=== PATIENT | male | born 1945 | race Caucasian/White ===

== ENCOUNTER 2017-03-08 07:17 | Day surgery (SDC) | payer OTHER, BC ==
[2017-03-07 13:55] VITALS: BMI 37.5
[2017-03-08] MEDS ORDERED: LIDOCAINE HCL/PF 2% SDV 5ML VIAL ONE (07:39)
[2017-03-08] MEDS ORDERED: PROPOFOL 20 ML ONE ×2 (07:39)
[2017-03-08 09:15] VITALS: TEMP 97.8
[2017-03-08 10:06] VITALS: BP 156/71; PULSE 83
--- NOTE | 2017-03-09 11:09 | PATH ---
Surgical Pathology Report Patient Name: GISELL HAYWARD [facility]. Rec. #: [id number] /Age/Gender: 1945 (Age: 71) / M Account: [id number] Location: [facility]-ENDOSCOPY Taken: 03/08/2017 Received: 03/08/2017 Reported: 03/09/2017 Physicians: Ginny Rodriguez M.D. Specimen(s) Received BX RECTAL ANASTOMOSIS Clinical History History of malignant neoplasm Rectal anastomosis, diverticulosis Final Diagnosis COLON, RECTAL ANASTOMOSIS, BIOPSY: COLONIC MUCOSA WITH MILD HYPERPLASTIC CHANGES. NO CARCINOMA OR ADENOMATOUS CHANGES IDENTIFIED. Electronically Signed Kunal Meneses M.D. Gross Description Received in formalin, labeled "biopsy rectal anastomosis" are 3 spear, irregular portions of soft tissue ranging from 0.3-0.5 cm. in greatest dimension. The specimens are submitted in toto in one cassette. /03/08/201703/08/2017
== END 2017-03-08 10:20 | disposition home or self-care (01) ==
LOC: JASU-ENDO 07:17
PROVIDERS: ATTEND Internal Medicine Gastroenterology
PROC: 0DBP8ZX Excision of Rectum, Via Natural or Artificial Opening Endoscopic, Diagnostic (ICD-10-PCS; principal; 2017-03-08 08:00)
DX: Z12.11 Encounter for screening for malignant neoplasm of colon (principal); Z85.048 Personal history of other malignant neoplasm of rectum, rectosigmoid junction, and anus; Z86.010 Personal history of colon polyps; K57.30 Diverticulosis of large intestine without perforation or abscess without bleeding; K64.8 Other hemorrhoids; Z98.0 Intestinal bypass and anastomosis status
CPT/HCPCS: 88305-TC